=== PATIENT | female | born 1945 | race Caucasian/White ===

== ENCOUNTER 2021-01-27 08:22 | Emergency (ER) | payer MEDICARE ==
[~2021-01-27 08:22] MED LIST: BYSTOLIC5 MG PO; MECLIZINE HCL25 MG PO; MELATONIN3 MG PO; PREMARIN0.3 MG PO; SYNTHROID125 MCG PO; VITAMIN B-121000 MCG PO; VITAMIN D31000 UNI1 PO; WELLBUTRIN SR150 M1 PO
[2021-01-27 09:47] LABS: HEMOGLOBIN 12.4 gm/dl (12.3-15.3); RED BLOOD COUNT 4.09 M/UL (4.00-5.10); WHITE BLOOD COUNT 4.3 K/UL (4.5-11.0)
[2021-01-27 10:12] LABS: BUN/CREATININE RATIO 17 (0-10)
[2021-01-27] MEDS ORDERED: ZOFRAN ODT 4 MG4 MG SL (11:01)
[2021-02-18] MEDS ORDERED: VITAMIN B12 PO (13:09)
[2021-02-18] MEDS ORDERED: VITAMIN D350 MC3 PO (13:09)
[2021-02-18] MEDS ORDERED: PREMARIN0.45 MG PO (13:13)
[2021-02-18] MEDS ORDERED: ZOFRAN ODT 4 MG4 MG PO (13:13)
[2021-02-18] MEDS ORDERED: SYNTHROID150 MCG PO (13:14)
[2021-02-18] MEDS ORDERED: MELATONIN5 M2 PO (13:14)
[2021-02-18] MEDS ORDERED: BYSTOLIC5 MG PO (13:18)
[2021-02-18] MEDS ORDERED: HYDROCODON-ACE1 EAC4 PO (13:20)
[2021-02-18] MEDS ORDERED: FLUTICASONE SPRAY (13:22)
== END 2021-01-27 12:01 | disposition home or self-care (01) ==
LOC: ER1 08:22
PROVIDERS: Physician Assistant
DX: K80.80 Other cholelithiasis without obstruction (principal); Z87.891 Personal history of nicotine dependence; Z79.899 Other long term (current) drug therapy
CPT/HCPCS: 76705; 80053; 82150; 83690; 85025; 93005; 96374; 99284; J2405

== ENCOUNTER 2021-02-27 06:06 | Day surgery (SDC) | payer MEDICARE ==
[~2021-02-27] VITALS: Ht 154.9 cm; Wt 68.9 kg
[~2021-02-27 06:06] MED LIST changes: +FLUTICASONE SPRAY; +HYDROCODON-ACE1 EAC4 PO; +MELATONIN5 M2 PO; +PREMARIN0.45 MG PO; +SYNTHROID150 MCG PO; +VITAMIN B12 PO; +VITAMIN D350 MC3 PO; +ZOFRAN ODT 4 MG4 MG PO; +ZOFRAN ODT 4 MG4 MG SL
[2021-02-27] MEDS ORDERED: HYDROCODON-ACE1 EAC4 PO (09:02)
== END 2021-02-28 10:39 | disposition home or self-care (01) ==
LOC: OR 06:06 → MED SURG 4 15:08 → OR 02-28 10:39
DX: K80.64 Calculus of gallbladder and bile duct with chronic cholecystitis without obstruction (principal); K66.0 Peritoneal adhesions (postprocedural) (postinfection); E78.5 Hyperlipidemia, unspecified; E03.9 Hypothyroidism, unspecified; F32.9 Major depressive disorder, single episode, unspecified; G43.909 Migraine, unspecified, not intractable, without status migrainosus; K21.9 Gastro-esophageal reflux disease without esophagitis; F41.9 Anxiety disorder, unspecified; I10 Essential (primary) hypertension; C88.4 Extranodal marginal zone B-cell lymphoma of mucosa-associated lymphoid tissue [MALT-lymphoma]; Z87.891 Personal history of nicotine dependence; Z88.1 Allergy status to other antibiotic agents; Z88.8 Allergy status to other drugs, medicaments and biological substances; Z79.899 Other long term (current) drug therapy
CPT/HCPCS: 94664; J1100; J1170; J2001; J2405; J2704; J2710; J3010; J7030; J7120

== ENCOUNTER → 2021-05-21 | Outpatient (CLI) | payer MEDICARE | LOC: EMI 10:08 | DX: Z48.89 Encounter for other specified surgical aftercare (principal); G91.2 (Idiopathic) normal pressure hydrocephalus; M47.812 Spondylosis without myelopathy or radiculopathy, cervical region | CPT/HCPCS: 72141 ==

== ENCOUNTER 2021-07-13 19:05 | Emergency (ER) | payer MEDICARE | END 2021-07-13 21:27 | disposition home or self-care (01) | LOC: ER1 19:05 | DX: G43.909 Migraine, unspecified, not intractable, without status migrainosus (principal); Z90.49 Acquired absence of other specified parts of digestive tract; Z87.891 Personal history of nicotine dependence; Z88.1 Allergy status to other antibiotic agents; Z88.8 Allergy status to other drugs, medicaments and biological substances | CPT/HCPCS: 96374; 96375; 99283; J1200; J2270; J2765 ==

== ENCOUNTER 2021-07-15 19:35 | Emergency (ER) | payer MEDICARE ==
[2021-07-15 20:19] LABS: HEMOGLOBIN 12.9 gm/dl (12.3-15.3); RED BLOOD COUNT 4.21 M/UL (4.00-5.10); WHITE BLOOD COUNT 5.4 K/UL (4.5-11.0)
[2021-07-15 20:41] LABS: BUN/CREATININE RATIO 11 (0-10)
== END 2021-07-15 21:55 | disposition home or self-care (01) ==
LOC: ER1 19:35
PROVIDERS: Student in an Organized Health Care Education/Training Program
DX: R00.2 Palpitations (principal); I10 Essential (primary) hypertension
CPT/HCPCS: 71045; 80053; 82550; 82553; 83874; 84484; 85025; 93005; 99285

== ENCOUNTER → 2021-07-15 | Outpatient (CLI) | payer MEDICARE ==
[2021-07-15 10:53] LABS: HEMOGLOBIN 13.3 gm/dl (12.3-15.3); RED BLOOD COUNT 4.42 M/UL (4.00-5.10)
[2021-07-15 11:22] LABS: BUN/CREATININE RATIO 11 (0-10)
== END ==
LOC: LAB 10:19
PROVIDERS: Nurse Practitioner Family
DX: R10.9 Unspecified abdominal pain (principal)
CPT/HCPCS: 80053; 82150; 83690; 85025

== ENCOUNTER → 2021-07-17 | Outpatient (CLI) | payer MEDICARE | LOC: CT 07:59 | DX: R10.9 Unspecified abdominal pain (principal); R10.812 Left upper quadrant abdominal tenderness; R19.8 Other specified symptoms and signs involving the digestive system and abdomen; R19.11 Absent bowel sounds; Z90.3 Acquired absence of stomach [part of]; Z90.49 Acquired absence of other specified parts of digestive tract; I10 Essential (primary) hypertension; R11.10 Vomiting, unspecified | CPT/HCPCS: 74170; Q9967 ==

== ENCOUNTER → 2022-03-04 | Day surgery (SDC) | payer MEDICARE | END | disposition home or self-care (01) | LOC: OR 07:46 | DX: D50.9 Iron deficiency anemia, unspecified (principal); I48.91 Unspecified atrial fibrillation; K31.1 Adult hypertrophic pyloric stenosis; I10 Essential (primary) hypertension; E66.3 Overweight; E03.9 Hypothyroidism, unspecified; Z68.27 Body mass index [BMI] 27.0-27.9, adult; Z88.1 Allergy status to other antibiotic agents; Z88.8 Allergy status to other drugs, medicaments and biological substances; Z20.822 Contact with and (suspected) exposure to COVID-19; Z53.8 Procedure and treatment not carried out for other reasons | CPT/HCPCS: 93005; J7040 ==

== ENCOUNTER → 2022-04-07 | Outpatient (CLI) | payer MEDICARE | LOC: HEART 5 10:00 | DX: R94.31 Abnormal electrocardiogram [ECG] [EKG] (principal); I48.91 Unspecified atrial fibrillation; I08.3 Combined rheumatic disorders of mitral, aortic and tricuspid valves | CPT/HCPCS: 93306 ==

== ENCOUNTER → 2022-04-21 | Outpatient (CLI) | payer MEDICARE | LOC: NM 03-24 10:30 → RAD 08:40 | DX: K31.1 Adult hypertrophic pyloric stenosis (principal) | CPT/HCPCS: 74246 ==

== ENCOUNTER → 2022-05-05 | Outpatient (CLI) | payer MEDICARE | LOC: HEART 5 07:30 | DX: I20.8 Other forms of angina pectoris (principal); R06.02 Shortness of breath | CPT/HCPCS: 78452; A9502; J2785 ==

== ENCOUNTER → 2022-05-19 | Outpatient (CLI) | payer MEDICARE ==
[~2022-05-19] MED LIST changes: +BYSTOLIC10 MG PO; +ELIQUIS2.5 MG PO; +FLONASE 0.05% N16 GM; +MULTAQ 400 MG400 MG PO
[2022-05-19 08:26] LABS: HEMOGLOBIN 12.3 gm/dl (12.3-15.3); RED BLOOD COUNT 4.08 M/UL (4.00-5.10); WHITE BLOOD COUNT 6.7 K/UL (4.5-11.0)
[2022-05-19 09:16] LABS: BUN/CREATININE RATIO 21 (0-10)
== END ==
LOC: CATH 07:06
PROVIDERS: Internal Medicine Cardiovascular Disease
DX: I48.19 Other persistent atrial fibrillation (principal); I10 Essential (primary) hypertension; E03.9 Hypothyroidism, unspecified; E78.5 Hyperlipidemia, unspecified; G91.2 (Idiopathic) normal pressure hydrocephalus; I20.8 Other forms of angina pectoris; Z88.1 Allergy status to other antibiotic agents; Z88.8 Allergy status to other drugs, medicaments and biological substances; Z79.01 Long term (current) use of anticoagulants; Z79.899 Other long term (current) drug therapy
CPT/HCPCS: 36415; 80048; 85027; 92960; 93005; J1200; J1742; J2250; J2310; J3010; J7040

== ENCOUNTER → 2022-05-25 | Outpatient (CLI) | payer MEDICARE | LOC: RAD 11:36 | DX: R06.02 Shortness of breath (principal); R60.9 Edema, unspecified | CPT/HCPCS: 71046 ==